=== PATIENT | male | born 1965 | race Caucasian/White ===

== ENCOUNTER 2017-12-23 14:01 | Outpatient (CLI) | payer MEDICARE ==
[~2017-12-23 14:01] MED LIST: BACL20TA PO; GABA300C PO; SOLI10TA2 PO
== END 2017-12-23 23:59 | disposition home or self-care (01) ==
LOC: WOU 14:01
PROVIDERS: ATTEND Podiatrist Foot & Ankle Surgery
DX: M79.672 Pain in left foot (principal); G81.91 Hemiplegia, unspecified affecting right dominant side; R26.89 Other abnormalities of gait and mobility
CPT/HCPCS: G0463

== ENCOUNTER 2018-02-10 14:10 | Outpatient (CLI) | payer MEDICARE | END 2018-02-10 23:59 | disposition home or self-care (01) | LOC: WOU 14:10 | PROVIDERS: ATTEND Podiatrist Foot & Ankle Surgery | DX: M79.672 Pain in left foot (principal); T45.1X5S Adverse effect of antineoplastic and immunosuppressive drugs, sequela; G81.91 Hemiplegia, unspecified affecting right dominant side; R26.89 Other abnormalities of gait and mobility; Z87.898 Personal history of other specified conditions; Z88.6 Allergy status to analgesic agent | CPT/HCPCS: G0463; Z7610 ==

== ENCOUNTER 2018-10-06 10:30 | Outpatient (CLI) | payer MEDICARE | END 2018-10-06 23:59 | disposition home or self-care (01) | LOC: WOU 10:30 | PROVIDERS: ATTEND Podiatrist Foot & Ankle Surgery | DX: Z46.89 Encounter for fitting and adjustment of other specified devices (principal); T45.1X5D Adverse effect of antineoplastic and immunosuppressive drugs, subsequent encounter; G81.91 Hemiplegia, unspecified affecting right dominant side; Z86.03 Personal history of neoplasm of uncertain behavior; R26.89 Other abnormalities of gait and mobility | CPT/HCPCS: G0463 ==

== ENCOUNTER 2018-10-14 16:04 | Emergency (ER) | payer MEDICARE ==
[~2018-10-14] VITALS: Ht 162.6 cm; Wt 53.1 kg
[2018-10-14 16:04] VITALS: BP 156/89
[2018-10-14 17:55] LABS: EOSINOPHILS % (AUTO) 2.9 % (0.0-6.0); HEMATOCRIT 41 % (39-51); HEMOGLOBIN 13.8 g/dL (13.5-17.5); LYMPHOCYTES # (AUTO) 1.2 /CMM (0.8-4.8); LYMPHOCYTES % (AUTO) 26.1 % (20.0-44.0); MEAN CORPUSCULAR HGB CONC 33 g/dl (31.0-36.0); MEAN CORPUSCULAR VOLUME 97 fL (80-96); MONOCYTES # (AUTO) 0.4 /CMM (0.1-1.30); MONOCYTES % (AUTO) 8.8 % (2.0-12.0); NEUTROPHILS # (AUTO) 2.7 /CMM (1.8-8.9); NEUTROPHILS % (AUTO) 61.2 % (43.0-81.0); PLATELET COUNT (AUTO) 214 /CMM (150-450); RED BLOOD CELL COUNT(AUTO) 4.26 MIL/uL (4.5-6.0); WHITE BLOOD COUNT (AUTO) 4.5 K/uL (4.3-11.0)
[2018-10-14 18:06] LABS: CALCIUM, SERUM 9.4 mg/dL (8.5-10.1); CREATININE 0.5 mg/dL (0.6-1.3); POTASSIUM 3.9 mmol/L (3.5-5.1)
--- NOTE | 2018-10-14 18:10 | NUR ---
SUNIL PARIKH @ FOR EVAL.
[2018-10-14 18:21] LABS: ALBUMIN 3.9 g/dL (3.4-5.0); BILIRUBIN,DIRECT 0.1 mg/dL (0.0-0.2); BILIRUBIN,TOTAL 0.3 mg/dL (0.2-1.0); TOTAL PROTEIN, SERUM 7.4 g/dL (6.4-8.2)
== END 2018-10-14 19:44 | disposition home or self-care (01) ==
LOC: ER 16:22
DX: I73.00 Raynaud's syndrome without gangrene (principal); R23.8 Other skin changes; G81.90 Hemiplegia, unspecified affecting unspecified side; Z88.8 Allergy status to other drugs, medicaments and biological substances; Z99.3 Dependence on wheelchair
CPT/HCPCS: 36415; 80048; 80076; 85025; 85730; 93926; 93971; 99284; A4606

== ENCOUNTER 2022-09-08 18:18 | Emergency (ER) | payer MEDICARE, OTHER ==
[~2022-09-08] VITALS: Ht 162.6 cm; Wt 61.2 kg
[2022-09-08 18:18] VITALS: BP 177/98
--- NOTE | 2022-09-08 19:05 | NUR ---
1817 BIB CAREGIVER SENT BY PMD FOR L TIBIA FRACTURE, PT FELL OFF OF HER AUTOMATIC WHEELCHAIR YESTERDAY, PAIN 5/10 ON PAIN SCALE
[2022-09-08] MEDS ORDERED: IBUP-1953 PO (19:18)
[2022-09-08] MEDS ORDERED: HYDR-3972 PO ×2 (19:18→19:52)
[2022-09-08] MEDS ORDERED: HYDROCODONE/APAP 5/325MG TABLET ONE (19:22)
[2022-09-08] MEDS ORDERED: HYDROCODONE/APAP 5/325MG TABLET PO ONE (19:30)
--- NOTE | 2022-09-08 19:43 | NUR ---
Patient discharged to home in stable condition. Written and verbal after care instructions given. Patient verbalizes understanding of instruction. Pt wheeled out in personal wheelchair by aid.
[2022-09-18] MEDS ORDERED: ENOX40DI SQ (08:17)
== END 2022-09-08 19:43 | disposition home or self-care (01) ==
LOC: EDSEX → ER 18:20
DX: S82.302A Unspecified fracture of lower end of left tibia, initial encounter for closed fracture (principal); Z88.8 Allergy status to other drugs, medicaments and biological substances; Z79.899 Other long term (current) drug therapy; W05.0XXA Fall from non-moving wheelchair, initial encounter; Y93.89 Activity, other specified; Y92.89 Other specified places as the place of occurrence of the external cause; Y99.8 Other external cause status

== ENCOUNTER 2022-09-11 11:51 | Outpatient (CLI) | payer MEDICARE, OTHER ==
[~2022-09-11 11:51] MED LIST changes: +HYDR-3972 PO; +IBUP-1953 PO
== END 2022-09-11 23:59 | disposition home or self-care (01) ==
LOC: LAB 11:51
PROVIDERS: ATTEND Student in an Organized Health Care Education/Training Program
DX: Z01.812 Encounter for preprocedural laboratory examination (principal); Z20.822 Contact with and (suspected) exposure to COVID-19
CPT/HCPCS: U0003; C9803

== ENCOUNTER 2022-09-16 11:34 | Inpatient (IN) | payer MEDICARE, OTHER ==
[~2022-09-16] VITALS: Ht 162.6 cm; Wt 59.0 kg
[~2022-09-16 11:34] MED LIST changes: +ANESTHESIA TRAY IN PYXIS 1 EA TRAY MC ONE; +BUPIVACAINE 0.5 % PF 150 MG/30 ML VIAL ONE
[2022-09-16] MEDS ORDERED: FENTANYL PF 100MCG/2ML AMPUL ONE (13:21)
[2022-09-16] MEDS ORDERED: MIDAZOLAM HCL 2 MG/2ML VIAL ONE (13:22)
[2022-09-16] MEDS ORDERED: HYDROMORPHONE INJ 2 MG/ML DISP.SYRIN ONE (13:22)
[2022-09-16] MEDS ORDERED: ROCURONIUM BROMIDE 50 MG/5 ML ONE (13:30)
[2022-09-16] MEDS ORDERED: BUPIVACAINE 0.5 % PF 150 MG/30 ML VIAL ONE (13:39)
[2022-09-16] MEDS ORDERED: ONDANSETRON HCL/PF 4 MG/2 ML VIAL ONE ×2 (17:09→17:21)
--- NOTE | 2022-09-16 18:00 | NUR ---
ADMISSION NOTES PATIENT RECEIVED FROM OR VIA [facility]. STATUS POST ORIF LEFT TIBIA WITH IM ADELFO, PATIENT TOLERATED ROOM AIR. WITH IV ACCESS AT LFA PATENT AND INTACT. NO SIGNS OF SHORTNESS OF BREATH, COMPLAINS OF PAIN ON LLE 3/10 ON PAIN SCALE., NO PAIN MEDICATION NEEDED AT THIS TIME. A/O X 4. PATIENT ORIENTED TO ROOM AND HOW TO USE THE CALL LIGHT. PATIENT BREATHING EVENLY AND UNLABORED. NO SIGNS OF DISTRESS NOTED. HISTORY TAKEN AND RECORDED. BELONGING SHEET ACCOUNTED FOR AND BELONGING SHEET FORM SIGNED. VITAL SIGNS T97.7 HR112, BP 145/89, RR20, SPO2 97%. SURGICAL INCISION DRESSING ON LLE C/D/I, SCD PUMP ON RLE. WILL SAFETY PRECAUTIONS MAINTAINED. KEPT SIDE RAILS UP X 2. KEPT BED LOWER LOCKED POSITION. WILL CONTINUE TO MONITOR.
--- NOTE | 2022-09-16 18:15 | NUR ---
RN NOTES PATIENT REMAINED STABLE WITH VITALS SIGNS BP: 126/85, HR:113, TEMP: 97.8, SPO2:98% ON ROOM AIR. SURGICAL INCISION DRESSING ON LLE REMAIN C/D/I.WILL CONTINUE TO MONITOR
--- NOTE | 2022-09-16 18:30 | NUR ---
RN NOTES PATIENT REMAINED STABLE WITH VITALS SIGNS BP: 135/85, HR:112, TEMP: 97.8, SPO2:97% ON ROOM AIR. SURGICAL INCISION DRESSING ON LLE REMAIN C/D/I.WILL CONTINUE TO MONITOR
--- NOTE | 2022-09-16 18:45 | NUR ---
RN NOTES PATIENT REMAINED STABLE WITH VITALS SIGNS BP: 130/85, HR:110, TEMP: 97.8, SPO2:98% ON ROOM AIR. SURGICAL INCISION DRESSING ON LLE REMAIN C/D/I.WILL CONTINUE TO MONITOR
[2022-09-16] MEDS ORDERED: DILT30TA2 PO (18:46)
[2022-09-16] MEDS ORDERED: CLOP75TA15 PO (18:46)
[2022-09-16] MEDS ORDERED: CHOL100043 PO (18:46)
[2022-09-16] MEDS ORDERED: BACL10TA PO (18:46)
[2022-09-16] MEDS ORDERED: CALC500T52 PO (18:46)
[2022-09-16] MEDS ORDERED: HYDR-3972 PO (18:46)
[2022-09-16] MEDS ORDERED: BACL20TA PO ×2 (18:46)
[2022-09-16] MEDS ORDERED: IBUP-1953 PO (18:46)
[2022-09-16] MEDS ORDERED: ATOR40TA PO (18:46)
[2022-09-16] MEDS ORDERED: SENN-211 PO (18:46)
[2022-09-16] MEDS ORDERED: ASPI-1420 PO (18:46)
[2022-09-16] MEDS ORDERED: MYRBETRIQ PO (18:46)
[2022-09-16] MEDS ORDERED: UBID100C13 PO (18:46)
[2022-09-16] MEDS ORDERED: LEVE500T20 PO (18:46)
[2022-09-16] MEDS ORDERED: GABA600T12 PO (18:46)
[2022-09-16] MEDS ORDERED: FOLI0.4T6 PO (18:46)
--- NOTE | 2022-09-16 19:00 | NUR ---
RN CLOSING NOTES PATIENT REMAINED STABLE WITH VITALS SIGNS BP: 139/76, HR:116, TEMP: 97.7, SPO2:96% ON ROOM AIR. SURGICAL INCISION DRESSING ON LLE REMAIN C/D/I.WILL ENDORSE TO FAMILY NURSE PRACTITIONER FOR NANO.
--- NOTE | 2022-09-16 19:35 | NUR ---
MS RN OPENING NOTE RECEIVED PT AWAKE IN BED. A/O X4 AND ABLE TO MAKE NEEDS KNOWN. PT STABLE ON ROOM AIR. NO SOB OR S/S OF RESPIRATORY DISTRESS. BREATHING EVEN AND UNLABORED. IV ACCESS L HAND SL, INTACT AND PATENT. WITH TIAN CATH IN PLACE DRAINING URINE BY GRAVITY. SAFETY PRECAUTIONS IN PLACE. BED IN LOWEST LOCKED POSITION, HOB ELEVATED, SIDE RAILS UP X2, AND CALL LIGHT AND TABLE WITHIN REACH. ALL NEEDS MET AT THIS TIME.
[2022-09-16 20:00] VITALS: BP 110/57
[2022-09-16] MEDS ORDERED: oxyCODONE/APAP (5/325 MG) 1 UDTAB TABLET PO PRN (20:00)
[2022-09-16] MEDS: DILTIAZEM HCL 30 MG TABLET PO SCH (20:38)
--- NOTE | 2022-09-16 21:38 | NUR ---
RN NOTE PT COMPLAINED OF PAIN 9/10 OF LEFT ANKLE. ADMINISTERED PERCOCET 5-325 MG 2 TABS FOR SEVERE PAIN ORDERED. CURRENT BP 115/68 HR 111 BPM R 20. MADE COMFORTABLE IN BED. PROVIDED ICE PACK. ALL NEEDS MET AT THIS TIME.
[2022-09-16] MEDS: CEFAZOLIN 2 GM in IV D5W 100 ML IV SCH (22:02)
[2022-09-17] MEDS: MORPHINE SULFATE INJ 2 MG/ML DISP.SYRIN IV PRN (00:14)
--- NOTE | 2022-09-17 00:14 | NUR ---
RN NOTE PT COMPLAINED OF PAIN 8/10 OF LEFT ANKLE. ADMINISTERED MORPHINE 3 MG FOR BREAKTHROUGH PAIN ORDERED. MADE COMFORTABLE IN BED. ALL NEEDS MET AT THIS TIME.
[2022-09-17] MEDS: CEFAZOLIN 2 GM in IV D5W 100 ML IV SCH (06:35)
--- NOTE | 2022-09-17 06:47 | NUR ---
MS RN CLOSING NOTE PT AWAKE IN BED. A/O X4 AND ABLE TO MAKE NEEDS KNOWN. PT STABLE ON ROOM AIR. NO SOB OR S/S OF RESPIRATORY DISTRESS. BREATHING EVEN AND UNLABORED. IV ACCESS L HAND SL, INTACT AND PATENT, CURRENTLY RUNNING ANCEF @ 200ML/HR. WITH TIAN CATH IN PLACE DRAINING URINE BY GRAVITY. ALL DUE MEDS GIVEN ORDERED. DRESSING C/D/I. SAFETY PRECAUTIONS IN PLACE AT ALL TIMES. BED IN LOWEST LOCKED POSITION, HOB ELEVATED, SIDE RAILS UP X2, AND CALL LIGHT AND TABLE WITHIN REACH. ALL NEEDS MET AT THIS TIME AND WILL ENDORSE TO ONCOMING NURSE FOR NANO.
[2022-09-17 07:00] VITALS: BP 117/56
--- NOTE | 2022-09-17 07:02 | NUR ---
MS RN OPENING NOTES RECEIVED PATIENT AWAKE IN BED, A/Ox4, ABLE TO MAKE NEEDS KNOWN. ON ROOM AIR NO S/S OF RESPIRATORY DISTRESS. PATIENT HAS IV ACCESS L FA #20G S/L. INTACT AND PATENT. PATIENT HAS FC DRAINING YELLOW URINE. ON BEDREST, CONTINENT. SKIN ISSUES: LLE SX SITE, DRESSING INTACT NO DRAINAGE NOTED. NO COMPLAINT OF PAIN OR DISCOMFORT. SAFETY MEASURES IN PLACE: BED LOCKED AND IN LOWEST POSITION, HOB ELEVATED, SIDE RAILS UP x3, CALL LIGHT WITHIN REACH. WILL CONTINUE TO MONITOR.
[2022-09-17 08:50] LABS: CALCIUM, SERUM 9.1 mg/dL (8.5-10.1); CREATININE 0.7 mg/dL (0.6-1.3); POTASSIUM 3.7 mmol/L (3.5-5.1)
[2022-09-17] MEDS: LEVETIRACETAM (250 MG) 250 MG TABLET PO SCH ×2 (08:55→17:01)
[2022-09-17] MEDS: GABAPENTIN 300 MG CAPSULE PO SCH ×2 (08:55→17:01)
[2022-09-17] MEDS: DILTIAZEM HCL 30 MG TABLET PO SCH ×2 (08:56→21:43)
[2022-09-17] MEDS ORDERED: SENNOSIDES/DOCUSATE SODIUM 1 UDTAB TABLET PO SCH (09:00)
[2022-09-17] MEDS: oxyCODONE/APAP (5/325 MG) 1 UDTAB TABLET PO PRN ×3 (10:18→19:38)
--- NOTE | 2022-09-17 10:30 | NUR ---
RN NOTES PERCOCET 1 TAB ADMINISTERED BEFORE PHYSICAL THERAPY, PATIENT NOTED WITH LITTLE PAIN AT THIS TIME, WILL CONTINUE TO MONITOR.
[2022-09-17 11:23] LABS: BASOPHILS # (AUTO) 0.1 K/uL (0.0-0.2); BASOPHILS % (AUTO) 0.7 % (0.0-2.0); HEMATOCRIT 27 % (33-45); LYMPHOCYTES # (AUTO) 1.2 K/uL (0.8-4.8); MEAN CORPUSCULAR HGB CONC 33 g/dl (31.0-36.0); MEAN CORPUSCULAR VOLUME 97 fL (82-100); MONOCYTES # (AUTO) 0.9 K/uL (0.1-1.30); MONOCYTES % (AUTO) 8.6 % (2.0-12.0); NEUTROPHILS # (AUTO) 7.9 K/uL (1.8-8.9); NEUTROPHILS % (AUTO) 78.7 % (43.0-81.0); PLATELET COUNT (AUTO) 278 K/uL (150-450); RED BLOOD CELL COUNT(AUTO) 2.83 MIL/uL (4.0-5.2); WHITE BLOOD COUNT (AUTO) 10.1 K/uL (4.3-11.0)
[2022-09-17] MEDS ORDERED: TEMAZEPAM 15 MG CAPSULE PO PRN (11:30)
--- NOTE | 2022-09-17 14:24 | NUR ---
RN notes Pt c/o mild left lower leg pain. ALANA Merino on her lunch. I am covering for her. PRN Percocet 5/325 tab given at 1421. Will informed ALANA Merino to monitor and reassess pt.
--- NOTE | 2022-09-17 15:36 | NUR ---
RN NOTES DR. MARTINEZ PA, CAME AND SPOKE TO PATIENT. PATIENT NOT SEEN IN ANY PAIN. GIVEN VERBAL TEACHINGS ON KEEPING LEG ELEVATED THROUGHOUT MOST OF THE DAY.
[2022-09-17 16:00] VITALS: BP 115/58
[2022-09-17] MEDS: ENOXAPARIN SODIUM 40 MG/0.4 ML DISP.SYRIN SQ SCH (17:02)
--- NOTE | 2022-09-17 18:34 | NUR ---
MS RN CLOSING NOTES PATIENT AWAKE IN BED, A/Ox4, ABLE TO MAKE NEEDS KNOWN. STABLE ON ROOM AIR NO S/S OF RESPIRATORY DISTRESS. PATIENT HAS IV ACCESS L FA #20G S/L. INTACT AND PATENT. PATIENT HAS FC DRAINING YELLOW URINE. ON BEDREST, CONTINENT. SKIN ISSUES: LLE SX SITE, DRESSING INTACT NO DRAINAGE NOTED. NO COMPLAINT OF PAIN OR DISCOMFORT. ALL PRESCRIBED MEDICATION ADMINISTERED.SAFETY MEASURES MAINTAINED: BED LOCKED AND IN LOWEST POSITION, HOB ELEVATED, SIDE RAILS UP x3, CALL LIGHT WITHIN REACH. WILL ENDORSE TO NEXT SHIFT ANY NANO.
--- NOTE | 2022-09-17 19:44 | NUR ---
MS RN NOTES PATIENT AWAKE IN BED, A/Ox4, ABLE TO MAKE NEEDS KNOWN. STABLE ON ROOM AIR NO S/S OF RESPIRATORY DISTRESS. PATIENT HAS IV ACCESS L FA #20G S/L. INTACT AND PATENT. PATIENT HAS FC DRAINING YELLOW URINE. ON BEDREST, CONTINENT. SKIN ISSUES: LLE SX SITE, DRESSING INTACT NO DRAINAGE NOTED. PT COMPLAINED OF PAIN ON LLE PRN PERCOCET GIVEN AND TOLERATED WELL. ALL PRESCRIBED MEDICATION ADMINISTERED.SAFETY MEASURES MAINTAINED: BED LOCKED AND IN LOWEST POSITION, HOB ELEVATED, SIDE RAILS UP x3, CALL LIGHT WITHIN REACH.
[2022-09-17 20:00] VITALS: BP 140/72
[2022-09-18] MEDS: MORPHINE SULFATE INJ 2 MG/ML DISP.SYRIN IV PRN (01:49)
--- NOTE | 2022-09-18 02:06 | NUR ---
RN NOTE PRN PAIN MEDICATION GIVEN TOLERATED WELL.
--- NOTE | 2022-09-18 06:51 | NUR ---
MS RN NOTES PATIENT AWAKE IN BED, A/Ox4, ABLE TO MAKE NEEDS KNOWN. STABLE ON ROOM AIR NO S/S OF RESPIRATORY DISTRESS. PATIENT HAS IV ACCESS LFA #20G S/L. INTACT AND PATENT. PATIENT HAS FC DRAINING YELLOW URINE. ON BEDREST, CONTINENT. SKIN ISSUES: LLE SX SITE, DRESSING INTACT NO DRAINAGE NOTED. PT COMPLAINED OF PAIN AT THIS TIME. ALL PRESCRIBED MEDICATION ADMINISTERED.SAFETY MEASURES MAINTAINED: BED LOCKED AND IN LOWEST POSITION, HOB ELEVATED, SIDE RAILS UP x3, CALL LIGHT WITHIN REACH. WILL ENDORSE CARE TO DAY SHIFT NURSE.
[2022-09-18 07:00] VITALS: BP 129/61
--- NOTE | 2022-09-18 07:30 | NUR ---
MS RN OPENING NOTES RECEIVED PATIENT AWAKE IN BED, A/Ox4, ABLE TO MAKE NEEDS KNOWN. ON ROOM AIR BREATHING EVEN AND NON LABORED. NO S/S OF RESPIRATORY DISTRESS. PATIENT HAS IV ACCESS L FA #20G S/L. INTACT AND PATENT. PATIENT HAS FC DRAINING YELLOW URINE. ON BEDREST. SKIN ISSUES: LLE SX SITE, DRESSING INTACT NO DRAINAGE NOTED. NO COMPLAINT OF PAIN OR DISCOMFORT. SAFETY MEASURES IN PLACE: BED LOCKED AND IN LOWEST POSITION, HOB ELEVATED, SIDE RAILS UP x3, CALL LIGHT WITHIN REACH. WILL CONTINUE TO MONITOR.
[2022-09-18] MEDS ORDERED: ENOX40DI SQ (08:17)
[2022-09-18] MEDS: LEVETIRACETAM (250 MG) 250 MG TABLET PO SCH ×2 (08:40→17:08)
[2022-09-18] MEDS: GABAPENTIN 300 MG CAPSULE PO SCH ×2 (08:41→17:08)
[2022-09-18] MEDS: DILTIAZEM HCL 30 MG TABLET PO SCH ×2 (08:41→20:33)
[2022-09-18] MEDS: SENNOSIDES/DOCUSATE SODIUM 1 TAB TABLET PO SCH (08:41)
[2022-09-18 16:00] VITALS: BP 129/70
[2022-09-18] MEDS ORDERED: MAGNESIUM HYDROXIDE 30 ML UDC PO PRN (17:00)
[2022-09-18] MEDS: ENOXAPARIN SODIUM 40 MG/0.4 ML DISP.SYRIN SQ SCH (17:12)
--- NOTE | 2022-09-18 18:35 | NUR ---
MS RN CLOSING NOTES PATIENT AWAKE IN BED, A/Ox4, ABLE TO MAKE NEEDS KNOWN. STABLE ON ROOM AIR NO S/S OF RESPIRATORY DISTRESS. PATIENT HAS IV ACCESS L FA #20G S/L. INTACT AND PATENT. PATIENT HAS FC DRAINING YELLOW URINE. ON BEDREST, CONTINENT. SKIN ISSUES: LLE SX SITE, DRESSING INTACT NO DRAINAGE NOTED. NO COMPLAINT OF PAIN OR DISCOMFORT. ALL PRESCRIBED MEDICATION ADMINISTERED. TURNED AND REPOSITIONED PATIENT Q2H. SAFETY MEASURES MAINTAINED: BED LOCKED AND IN LOWEST POSITION, HOB ELEVATED, SIDE RAILS UP x3, CALL LIGHT WITHIN REACH. WILL ENDORSE TO NEXT SHIFT FOR NANO.
--- NOTE | 2022-09-18 19:21 | NUR ---
MS RN OPENING NOTES PATIENT AWAKE IN BED, A/Ox4, ABLE TO MAKE NEEDS KNOWN. STABLE ON ROOM AIR NO S/S OF RESPIRATORY DISTRESS. PATIENT HAS IV ACCESS L FA #20G S/L. INTACT AND PATENT. PATIENT HAS FC DRAINING YELLOW URINE. ON BEDREST, CONTINENT. SKIN ISSUES: LLE SX SITE, DRESSING INTACT NO DRAINAGE NOTED. NO COMPLAINT OF PAIN OR DISCOMFORT. TURNED AND REPOSITIONED PATIENT Q2H. SAFETY MEASURES MAINTAINED: BED LOCKED AND IN LOWEST POSITION, HOB ELEVATED, SIDE RAILS UP x3, CALL LIGHT WITHIN REACH.
[2022-09-18 20:00] VITALS: BP 114/55
--- NOTE | 2022-09-19 06:34 | NUR ---
MS RN CLOSING NOTES PATIENT AWAKE IN BED, A/Ox4, ABLE TO MAKE NEEDS KNOWN. STABLE ON ROOM AIR NO S/S OF RESPIRATORY DISTRESS. PATIENT HAS IV ACCESS LFA #20G S/L. INTACT AND PATENT. PATIENT HAS FC DRAINING YELLOW URINE. ON BEDREST, CONTINENT. NO COMPLAINT OF PAIN OR DISCOMFORT. TURNED AND REPOSITIONED PATIENT Q2H. SAFETY MEASURES MAINTAINED: BED LOCKED AND IN LOWEST POSITION, HOB ELEVATED, SIDE RAILS UP x3, CALL LIGHT WITHIN REACH.
--- NOTE | 2022-09-19 07:37 | NUR ---
RN OPENING NOTE PATIENT AWAKE IN BED RESTING, A/O X 4. NO S/S OF PAIN NOTED AT THIS TIME. ON ROOM AIR, NO SHORTNESS OF BREATH, NO DISTRESS NOTED. IV ACCESS LFA #20G, INTACT, PATENT AND FLUSHING WELL. PATIENT HAVE A TIAN CATHETER IN PLACE AND DRAINING WELL. FALL AND SAFETY MEASURES IN PLACE, BED ALARM ON, BED IN LOW AND LOCK POSITION, CALL LIGHT AND TABLE WITHIN EASY REACH, SIDE RAILS UP X2. WILL CONTINUE TO MONITOR.
[2022-09-19 08:20] VITALS: BP 162/77
[2022-09-19] MEDS: GABAPENTIN 300 MG CAPSULE PO SCH (08:20)
[2022-09-19] MEDS: LEVETIRACETAM (250 MG) 250 MG TABLET PO SCH (08:20)
[2022-09-19] MEDS: DILTIAZEM HCL 30 MG TABLET PO SCH (08:20)
[2022-09-19] MEDS: SENNOSIDES/DOCUSATE SODIUM 1 TAB TABLET PO SCH (08:20)
--- NOTE | 2022-09-19 09:30 | NUR ---
RN NOTE PATIENT TIAN CATHETER WAS REMOVED, PATIENT TOLERATED PROCEDURE WELL, LAST TIAN CATHETER OUTPUT WAS 700ML, YELLOW URINE. PATIENT DID NOT COMPLAIN OF PAIN OR ANY DISCOMFORT. PATIENT IN ROOM RESTING COMFORTABLY. WILL CONTINUE TO MONITOR CHARGE NURSE AWARE.
--- NOTE | 2022-09-19 11:44 | NUR ---
NETWORK STRATEGIST NOTE PATIENT DISCHARGE IN STABLE MEDICAL CONDITION, A/O X3-4. V/S TAKEN, STABLE AND RECORDED, NO IV ACCESS. NAME ARM BAND REMOVED. SKIN ASSESSMENT DONE, SKIN INTACT EXCEPT FOR SURGICAL SITE. PICTURES NOT TAKEN PATIENT DID NOT WANT TO REMOVE RAMIN WRAP FROM SURGICAL SITE. ALL BELONGINGS CHECKED AND BELONGING LIST SIGNED. PATIENT HAVE A ELECTRIC WHEELCHAIR, REGISTERED RADIOGRAPHER WERE NOT ABLE TO TAKE IT WITH THEM. THE WHEELCHAIR IN PATIENT'S ROOM 307-1, LABEL WITH PATIENT'S NAME. PATIENT STATED THAT HER RESOURCE ECONOMIST WILL MANAGER TRANSMISSION HER WHEELCHAIR. HEALTH TEACHING AND DISCHARGE INSTRUCTIONS GIVEN TO PATIENT AND NURSE AT FACILITY AND VERBALIZED UNDERSTANDING. PATIENT WENT TO [facility], REPORT GIVEN TO ALANA ALVARES. INSTRUCTED PATIENT IN CASE OF EMERGENCY TO CALL 911 OR GO TO NEAREST ER. PATIENT LEFT UNIT VIA GURNEY WITH NO SIGN OF DISTRESS ACCOMPANIED BY REGISTERED RADIOGRAPHER. CHARGE NURSE AWARE OF DISCHARGED.
== END 2022-09-19 11:40 | DRG 493 ==
LOC: DS 11:34 → MED 14:24
PROVIDERS: ADMIT Internal Medicine; ATTEND Internal Medicine
PROC: 0QSH06Z Reposition Left Tibia with Intramedullary Internal Fixation Device, Open Approach (ICD-10-PCS; principal; 2022-09-16)
DX: S82.242A Displaced spiral fracture of shaft of left tibia, initial encounter for closed fracture (principal); G81.91 Hemiplegia, unspecified affecting right dominant side; Z20.822 Contact with and (suspected) exposure to COVID-19; Z98.890 Other specified postprocedural states; Z85.841 Personal history of malignant neoplasm of brain; G40.909 Epilepsy, unspecified, not intractable, without status epilepticus; G62.9 Polyneuropathy, unspecified; I73.9 Peripheral vascular disease, unspecified; Z79.02 Long term (current) use of antithrombotics/antiplatelets; Z79.82 Long term (current) use of aspirin; Z79.899 Other long term (current) drug therapy; X58.XXXA Exposure to other specified factors, initial encounter; Y92.9 Unspecified place or not applicable; F32.9 Major depressive disorder, single episode, unspecified
CPT/HCPCS: 36415; 73590-TC; 80048-TC; 85025-TC; 87081-TC; 97110-TC; 97112-TC; 97530-TC; C1713; G0378; J0690; J1100; J1170; J1650; J2250; J2270; J2370; J2405; J2704; J2765; J3010; J3490; J7030; J7050; J7060

== ENCOUNTER 2024-12-18 11:14 | Inpatient (IN) | payer MEDICARE, OTHER ==
[~2024-12-18] VITALS: Ht 162.6 cm; Wt 61.2 kg
[~2024-12-18 11:14] MED LIST changes: -ANESTHESIA TRAY IN PYXIS 1 EA TRAY MC ONE; +ASPI-1420 PO; +ATOR40TA PO; +BACL10TA PO; -BUPIVACAINE 0.5 % PF 150 MG/30 ML VIAL ONE; +CALC500T52 PO; +CHOL100043 PO; +CLOP75TA15 PO; +DILT30TA2 PO; +ENOX40DI SQ; +FOLI0.4T6 PO; -GABA300C PO; +GABA600T12 PO; +LEVE500T20 PO; +MYRBETRIQ PO; +SENN-211 PO; -SOLI10TA2 PO; +UBID100C13 PO
[2024-12-18 11:52] LABS: BASOPHILS % (AUTO) 0.6 % (0.0-2.0); EOSINOPHILS # (AUTO) 0.2 K/uL (0.0-0.7); EOSINOPHILS % (AUTO) 3.6 % (0.0-6.0); HEMATOCRIT 39 % (33-45); HEMOGLOBIN 13.1 g/dL (11.5-14.8); LYMPHOCYTES # (AUTO) 1.1 K/uL (0.8-4.8); LYMPHOCYTES % (AUTO) 22.5 % (20.0-44.0); MEAN CORPUSCULAR HEMOGLOBIN 32 PG (26.0-33.0); MEAN CORPUSCULAR HGB CONC 34 g/dl (31.0-36.0); MEAN CORPUSCULAR VOLUME 94 fL (82-100); MONOCYTES # (AUTO) 0.4 K/uL (0.1-1.30); MONOCYTES % (AUTO) 8.1 % (2.0-12.0); NEUTROPHILS # (AUTO) 3.2 K/uL (1.8-8.9); NEUTROPHILS % (AUTO) 65.2 % (43.0-81.0); PLATELET COUNT (AUTO) 221 K/uL (150-450); RED BLOOD CELL COUNT(AUTO) 4.13 MIL/uL (4.0-5.2); RED CELL DISTRIBUTION WIDTH 12.9 % (11.5-15.0); WHITE BLOOD COUNT (AUTO) 4.8 K/uL (4.3-11.0)
[2024-12-18 12:00] LABS: CALCIUM, SERUM 9.6 mg/dL (8.5-10.1); CARBON DIOXIDE 27 mmol/L (21-32); CHLORIDE 102 mmol/L (98-107); CREATININE 0.4 mg/dL (0.6-1.3); GLUCOSE 105 mg/dL (74-106); POTASSIUM 4.1 mmol/L (3.5-5.1); SODIUM SERUM 138 mmol/L (136-145); UREA NITROGEN, BLOOD 14 mg/dL (7-18)
[2024-12-18 12:05] LABS: ACETAMINOPHEN <10 ug/ml (10-30); ALCOHOL, BLOOD < 3 mg/dL (0-10); SALICYLATE 1.2 mg/dL (2.8-20.0)
[2024-12-18 12:11] LABS: PARTIAL THROMBOPLASTIN TIME 30.2 SEC (24.3-34.3); PROTHROMBIN TIME 10.6 SECS (9.2-11.1)
[2024-12-18 12:45] LABS: AMPHETAMINE, URINE NEGATIVE (NEGATIVE); BARBITURATE, URINE NEGATIVE (NEGATIVE); BENZODIAZEPINE, URINE NEGATIVE (NEGATIVE); CANNABINOID, URINE NEGATIVE (NEGATIVE); COCCAINE, URINE NEGATIVE (NEGATIVE); OPIATE, URINE NEGATIVE (NEGATIVE); PHENCYCLIDINE SCREEN,URINE NEGATIVE (NEGATIVE)
[2024-12-18 12:46] LABS: APPEARANCE,URINE CLEAR (CLEAR); BILIRUBIN,URINE NEGATIVE (NEGATIVE); BLOOD, URINE NEGATIVE Ery/uL (NEGATIVE); COLOR,URINE YELLOW (YELLOW); KETONES,URINE NEGATIVE (NEGATIVE); LEUKOCYTE ESTERASE ,URINE 2+ (NEGATIVE); NITRITE, URINE NEGATIVE (NEGATIVE); PH,URINE 6.5 (5.0-8.0); PROTEIN,URINE NEGATIVE (NEGATIVE); UGLUCOSE NEGATIVE (NEGATIVE); UROBILINOGEN,URINE 0.2 EU/dL (0.2)
[2024-12-18 12:51] LABS: ADD URINE CULTURE YES; BACTERIA,URINE Few /HPF (None Seen)
[2024-12-18] MEDS ORDERED: GEMTESA PO (13:32)
[2024-12-18] MEDS ORDERED: DESM0.2T4 PO (13:32)
[2024-12-18] MEDS ORDERED: METO25TA20 PO (13:32)
[2024-12-18] MEDS ORDERED: MAGNESIUM HYDROXIDE 30 ML UDC PO PRN (15:30)
[2024-12-18] MEDS ORDERED: MAG HYDROX/AL HYDROX/SIMETH 30 ML UDC PO PRN (15:30)
[2024-12-18] MEDS ORDERED: ONDANSETRON HCL/PF 4 MG/2 ML VIAL IVP PRN (15:30)
[2024-12-18] MEDS ORDERED: Z GUARD REMEDY 4 OZ OINT TP PRN (15:30)
[2024-12-18 20:00] VITALS: BP 153/80; TEMP 97.7; O2SAT 98
[2024-12-18] MEDS: IV NS 0.9% 1,000 ML IV PRN (20:36)
[2024-12-18 20:50] VITALS: BP 153/80; TEMP 97.7; O2SAT 98
[2024-12-18] MEDS ORDERED: METOPROLOL TARTRATE 25 MG TABLET PO SCH (22:00)
[2024-12-18] MEDS ORDERED: IBUPROFEN 400 MG TABLET PO PRN (22:00)
[2024-12-18] MEDS: METOPROLOL TARTRATE INJ 5 MG/5 ML AMPUL IV ONE (22:04)
[2024-12-19] VITALS: BP 116/69; TEMP 98.1; O2SAT 96
[2024-12-19 04:00] VITALS: BP 114/87; TEMP 98.2; O2SAT 96
[2024-12-19 07:51] LABS: BASOPHILS % (AUTO) 0.7 % (0.0-2.0); EOSINOPHILS # (AUTO) 0.1 K/uL (0.0-0.7); EOSINOPHILS % (AUTO) 1.1 % (0.0-6.0); HEMATOCRIT 39 % (33-45); LYMPHOCYTES # (AUTO) 1.1 K/uL (0.8-4.8); LYMPHOCYTES % (AUTO) 16.2 % (20.0-44.0); MEAN CORPUSCULAR HEMOGLOBIN 32 PG (26.0-33.0); MEAN CORPUSCULAR HGB CONC 34 g/dl (31.0-36.0); MEAN CORPUSCULAR VOLUME 94 fL (82-100); MONOCYTES # (AUTO) 0.5 K/uL (0.1-1.30); MONOCYTES % (AUTO) 7.6 % (2.0-12.0); NEUTROPHILS % (AUTO) 74.4 % (43.0-81.0); PLATELET COUNT (AUTO) 231 K/uL (150-450); RED BLOOD CELL COUNT(AUTO) 4.14 MIL/uL (4.0-5.2); WHITE BLOOD COUNT (AUTO) 6.7 K/uL (4.3-11.0)
[2024-12-19 08:00] VITALS: BP 135/67; TEMP 97.7; O2SAT 96
[2024-12-19 08:09] LABS: CALCIUM, SERUM 9.7 mg/dL (8.5-10.1); CREATININE 0.3 mg/dL (0.6-1.3); MAGNESIUM 2.2 mg/dL (1.8-2.4); PHOSPHORUS 2.9 mg/dL (2.5-4.9); POTASSIUM 3.7 mmol/L (3.5-5.1)
[2024-12-19] MEDS ORDERED: Medication Not On Formulary EA ([Gemtesa] 75 MG) PO SCH (09:00)
[2024-12-19] MEDS: BACLOFEN (10 MG) 10 MG TABLET PO SCH (09:43)
[2024-12-19] MEDS: LEVETIRACETAM (250 MG) 250 MG TABLET PO SCH (09:43)
[2024-12-19] MEDS: FOLIC ACID 1 MG TABLET PO SCH (09:43)
[2024-12-19] MEDS: CLOPIDOGREL BISULFATE 75 MG TABLET PO SCH (09:44)
[2024-12-19] MEDS: GABAPENTIN 300 MG CAPSULE PO SCH (09:45)
[2024-12-19] MEDS: METOPROLOL TARTRATE 25 MG TABLET PO SCH (09:45)
[2024-12-19] MEDS: CALCIUM CARBONATE (1250) 500 MG TABLET PO SCH (09:45)
[2024-12-19] MEDS: DESMOPRESSIN ACETATE 0.1 MG TABLET PO SCH (09:46)
[2024-12-19 12:00] VITALS: BP 144/74; TEMP 98.4; O2SAT 98
[2024-12-19 16:00] VITALS: BP 120/68; TEMP 98.8; O2SAT 98
[2024-12-19] MEDS ORDERED: Medication Not On Formulary EA (Ubidecarenone (Coq-10) 200 MG) PO SCH (18:00)
[2024-12-19 20:00] VITALS: BP 139/74; TEMP 97.9; O2SAT 98
[2024-12-20] VITALS: BP_SYST 134; BP_DIAS 80; BP_DIAS 90; TEMP 98.1; O2SAT 98
[2024-12-20 04:00] VITALS: BP 128/64; TEMP 98.1; O2SAT 95
[2024-12-20 08:00] VITALS: BP 124/64; TEMP 97.7; O2SAT 97
[2024-12-20] MEDS: ASPIRIN 81 MG TAB.CHEW PO SCH (12:34)
[2024-12-20] MEDS: ATORVASTATIN 10 MG TABLET PO SCH (12:34)
[2024-12-20 16:00] VITALS: BP 119/68; TEMP 97.7; O2SAT 96
[2024-12-20 20:00] VITALS: BP 108/66; TEMP 97.3; TEMP 97.7; O2SAT 97
[2024-12-20] MEDS: ACETAMINOPHEN 325 MG TABLET PO PRN (21:58)
[2024-12-21 08:00] VITALS: BP 115/77; TEMP 97.7; O2SAT 98
[2024-12-21] MEDS ORDERED: ASPI-1169 PO (09:26)
[2024-12-21] MEDS ORDERED: ATOR10TA PO (09:26)
[2024-12-21 17:00] VITALS: BP 100/60
== END 2024-12-21 18:30 | disposition home health service (06) | DRG 69 ==
LOC: ER 11:14 → TELE 16:17 → MED 12-20 10:43
PROVIDERS: ADMIT Internal Medicine; ATTEND Internal Medicine
DX: G45.9 Transient cerebral ischemic attack, unspecified (principal); G81.91 Hemiplegia, unspecified affecting right dominant side; G40.909 Epilepsy, unspecified, not intractable, without status epilepticus; Z79.02 Long term (current) use of antithrombotics/antiplatelets; Z86.73 Personal history of transient ischemic attack (TIA), and cerebral infarction without residual deficits; G93.89 Other specified disorders of brain; Z98.890 Other specified postprocedural states; Z88.8 Allergy status to other drugs, medicaments and biological substances; Z79.01 Long term (current) use of anticoagulants; Z79.899 Other long term (current) drug therapy; Z79.82 Long term (current) use of aspirin; Z85.841 Personal history of malignant neoplasm of brain; E78.5 Hyperlipidemia, unspecified; I10 Essential (primary) hypertension
CPT/HCPCS: 36415; 70450-TC; 71045-TC; 80048-TC; 81001; 83735-TC; 84100-TC; 84443-TC; 85025-TC; 85730-TC; 87086-TC; 97110-TC; 97112-TC; 97530-TC; A4223; A6253; G0378; G0480; J3490; J7030

== ENCOUNTER 2025-06-19 11:14 | Inpatient (IN) | payer MEDICARE, OTHER ==
[~2025-06-19] VITALS: Ht 162.6 cm; Wt 60.8 kg
[~2025-06-19 11:14] MED LIST changes: +ASPI-1169 PO; -ASPI-1420 PO; +ATOR10TA PO; -ATOR40TA PO; -BACL10TA PO; +DESM0.2T4 PO; -DILT30TA2 PO; -ENOX40DI SQ; +GEMTESA PO; -HYDR-3972 PO; +METO25TA20 PO; -MYRBETRIQ PO; -SENN-211 PO
[2025-06-19] MEDS ORDERED: LEVE1000 PO (11:52)
[2025-06-19] MEDS ORDERED: ASPI-1169 PO (11:52)
[2025-06-19] MEDS ORDERED: ATOR10TA PO (11:52)
[2025-06-19 11:58] LABS: PLATELET COUNT (AUTO) 264 K/uL (150-450); RED BLOOD CELL COUNT(AUTO) 4.11 MIL/uL (4.0-5.2); RED CELL DISTRIBUTION WIDTH 12.7 % (11.5-15.0); WHITE BLOOD COUNT (AUTO) 4.6 K/uL (4.3-11.0)
[2025-06-19] MEDS: IV NS 0.9% 1,000 ML BAG IV ONE (12:01)
[2025-06-19 12:06] LABS: CALCIUM, SERUM 9.1 mg/dL (8.5-10.1); CREATININE 0.3 mg/dL (0.6-1.3); SODIUM SERUM 131 mmol/L (136-145); UREA NITROGEN, BLOOD 17 mg/dL (7-18)
[2025-06-19 13:26] LABS: APPEARANCE,URINE CLEAR (CLEAR); BLOOD, URINE Negative Ery/uL (NEGATIVE); LEUKOCYTE ESTERASE ,URINE Negative (NEGATIVE); NITRITE, URINE NEGATIVE (NEGATIVE); UGLUCOSE Negative (NEGATIVE)
[2025-06-19 15:39] VITALS: BP 167/92; TEMP 97.3
[2025-06-19 16:00] VITALS: BP_SYST 147; BP_SYST 167; BP_DIAS 67; BP_DIAS 92; TEMP 97.3; O2SAT 98; O2SAT 99
[2025-06-19] MEDS: BACLOFEN (10 MG) 10 MG TABLET PO SCH (16:31)
[2025-06-19] MEDS: GABAPENTIN 300 MG CAPSULE PO SCH (16:31)
[2025-06-19] MEDS: CALCIUM CARBONATE (1250) 500 MG TABLET PO SCH (16:32)
[2025-06-19] MEDS: CHOLECALCIFEROL 1,000 UNIT TABLET (VIT D3) PO SCH (16:32)
[2025-06-19] MEDS: METOPROLOL TARTRATE 25 MG TABLET PO SCH (16:33)
[2025-06-19 20:06] VITALS: BP 133/73; TEMP 97.7; O2SAT 96
[2025-06-19 20:54] VITALS: BP 133/73; TEMP 97.7; O2SAT 96
[2025-06-19] MEDS: LEVETIRACETAM (250 MG) 250 MG TABLET PO SCH (21:18)
[2025-06-20] VITALS (8 sets, daily range): BP systolic 125–150; BP diastolic 69–86; TEMP 97.1–98.1; O2SAT 96–100
[2025-06-20] MEDS: IBUPROFEN 400 MG TABLET PO PRN (02:53)
[2025-06-20] MEDS ORDERED: MAG HYDROX/AL HYDROX/SIMETH 30 ML UDC PO PRN (08:30)
[2025-06-20] MEDS ORDERED: Z GUARD REMEDY 4 OZ OINT TP PRN (08:30)
[2025-06-20] MEDS ORDERED: ZOLPIDEM TARTRATE 5 MG TABLET PO PRN (08:30)
[2025-06-20] MEDS ORDERED: ACETAMINOPHEN 325 MG TABLET PO PRN (08:30)
[2025-06-20] MEDS ORDERED: ONDANSETRON HCL/PF 4 MG/2 ML VIAL IVP PRN (08:30)
[2025-06-20] MEDS ORDERED: MAGNESIUM HYDROXIDE 30 ML UDC PO PRN (08:30)
[2025-06-20] MEDS: IV NS 0.9% 1,000 ML IV PRN (08:42)
[2025-06-20] MEDS: FOLIC ACID 1 MG TABLET PO SCH (10:00)
[2025-06-20] MEDS: CLOPIDOGREL BISULFATE 75 MG TABLET PO SCH (10:00)
[2025-06-20] MEDS: LEVETIRACETAM (250 MG) 250 MG TABLET PO SCH (10:00)
[2025-06-20] MEDS: ATORVASTATIN 10 MG TABLET PO SCH (10:01)
[2025-06-20] MEDS: ASPIRIN 81 MG TAB.CHEW PO SCH (10:02)
[2025-06-20] MEDS: DESMOPRESSIN ACETATE 0.1 MG TABLET PO SCH (10:09)
[2025-06-20 11:27] LABS: PLATELET COUNT (AUTO) 253 K/uL (150-450); RED BLOOD CELL COUNT(AUTO) 4.15 MIL/uL (4.0-5.2); RED CELL DISTRIBUTION WIDTH 12.8 % (11.5-15.0); WHITE BLOOD COUNT (AUTO) 7.4 K/uL (4.3-11.0)
[2025-06-20 11:54] LABS: ASPARTATE AMINOTRANSFERASE 17.0 U/L (15-37); CALCIUM, SERUM 9.2 mg/dL (8.5-10.1); CREATININE 0.5 mg/dL (0.6-1.3); SODIUM SERUM 142.0 mmol/L (136-145); TOTAL PROTEIN, SERUM 7.3 g/dL (6.4-8.2); UREA NITROGEN, BLOOD 15.0 mg/dL (7-18)
[2025-06-21] VITALS: BP 150/86; TEMP 97.3; O2SAT 98
[2025-06-21 04:00] VITALS: BP 145/82; TEMP 97.4; O2SAT 98
[2025-06-21 07:00] VITALS: BP 112/66; TEMP 97.3; O2SAT 96
[2025-06-21 07:50] LABS: CALCIUM, SERUM 9.6 mg/dL (8.5-10.1); CREATININE 0.4 mg/dL (0.6-1.3); PHOSPHORUS 3.0 mg/dL (2.5-4.9); SODIUM SERUM 143.0 mmol/L (136-145); UREA NITROGEN, BLOOD 8.0 mg/dL (7-18)
[2025-06-21 08:00] VITALS: BP 126/77; TEMP 97.3; O2SAT 96
[2025-06-21 16:00] VITALS: BP 104/70; TEMP 98.4; O2SAT 95
== END 2025-06-21 16:44 | disposition home health service (06) | DRG 74 ==
LOC: ER 11:19 → TELE 14:11 → MED 06-20 10:28
PROVIDERS: ADMIT Internal Medicine; ATTEND Internal Medicine
DX: G90.89 Other disorders of autonomic nervous system (principal); E87.1 Hypo-osmolality and hyponatremia; G93.89 Other specified disorders of brain; Z79.02 Long term (current) use of antithrombotics/antiplatelets; I69.351 Hemiplegia and hemiparesis following cerebral infarction affecting right dominant side; I10 Essential (primary) hypertension; G40.909 Epilepsy, unspecified, not intractable, without status epilepticus; R53.1 Weakness; Z79.899 Other long term (current) drug therapy; Z85.841 Personal history of malignant neoplasm of brain; Z88.8 Allergy status to other drugs, medicaments and biological substances; Z79.82 Long term (current) use of aspirin; Z98.890 Other specified postprocedural states; I95.9 Hypotension, unspecified
CPT/HCPCS: 36415; 70450-TC; 71045-TC; 80048-TC; 80053-TC; 82962-TC; 83735-TC; 84100-TC; 84443-TC; 84484-TC; 84550-TC; 85025-TC; 87086-TC; 93307-TC; 93880-TC; A4223; G0378; J7030